=== PATIENT | female | born 1955 | race Caucasian/White ===

== ENCOUNTER 2018-03-06 16:13 | Emergency (ER) | payer MEDICAID ==
[~2018-03-06] VITALS: Ht 166.4 cm; Wt 93.0 kg
[~2018-03-06 16:13] MED LIST: AMLO5TAB4 PO; BENA40TA9 PO; CETI10TA18 PO; FOLI1TAB16 PO; HYDR12.5 PO; THI100T PO
[2018-03-06] MEDS ORDERED: ketorolac tromethamine 15mg/ml inj. IV ONE (16:25)
[2018-03-06 17:34] LABS: BASOPHILS # (AUTO) 0.1 X10'3 (0-0.2); BASOPHILS % (AUTO) 0.7 % (0-1); EOSINOPHILS # (AUTO) 0.2 X10'3 (0-0.9); HEMATOCRIT 40.7 % (35.0-45.0); HEMOGLOBIN 13.7 g/dl (12.0-16.0); LYMPHOCYTES # (AUTO) 2.7 X10'3 (1.1-4.8); LYMPHOCYTES % (AUTO) 30.9 % (21-51); MEAN CORPUSCULAR HEMOGLOBIN 33.6 PG (27.0-31.0); MEAN CORPUSCULAR HGB CONC 33.5 % (33.0-36.5); MEAN CORPUSCULAR VOLUME 100.2 FL (78-98); MEAN PLATELET VOLUME 7.1 FL (7.4-10.4); MONOCYTES # (AUTO) 0.4 X10'3 (0-0.9); MONOCYTES % (AUTO) 4.8 % (2-12); NEUTROPHILS # (AUTO) 5.4 X10'3 (1.8-7.7); NEUTROPHILS % (AUTO) 61.6 % (42-75); PLATELET COUNT 321 X10'3 (140-440); RED BLOOD COUNT 4.07 X10'6 (4.20-5.60); RED CELL DISTRIBUTION WIDTH 13.7 % (11.5-14.5); WHITE BLOOD COUNT 8.8 X10'3 (4.5-11.0)
[2018-03-06 17:56] LABS: ALANINE AMINOTRANSFERASE 45 U/L (12-78); ALBUMIN 3.9 G/DL (3.4-5.0); ALKALINE PHOSPHATASE 66 IU/L (46-116); ANION GAP 20 (8-16); ASPARTATE AMINO TRANSFERASE 54 U/L (10-37); BILIRUBIN,TOTAL 0.3 MG/DL (0.1-1.0); BLOOD UREA NITROGEN 27 MG/DL (7-18); CALCIUM 9.5 MG/DL (8.5-10.1); CHLORIDE 96 MMOL/L (99-107); CREATININE 1.59 MG/DL (0.40-0.90); GLUCOSE 87 MG/DL (70-104); POTASSIUM 3.5 MMOL/L (3.5-5.1); SODIUM 135 MMOL/L (135-145); TOTAL PROTEIN 7.9 G/DL (6.4-8.2); eGFR 33 ML/MIN
[2018-03-06 17:58] LABS: ETHANOL 0.339 GM/DL (0.0-0.010)
[2018-03-06 18:00] LABS: PARTIAL THROMBOPLASTIN TIME 26 SECONDS (22-32); PROTHROMBIN TIME 10.3 SECONDS (9.0-12.0)
[2018-03-06 18:26] VITALS: BP 116/82
== END 2018-03-06 18:28 | disposition home or self-care (01) ==
LOC: ER 16:13
DX: S42.024A Nondisplaced fracture of shaft of right clavicle, initial encounter for closed fracture (principal); S00.83XA Contusion of other part of head, initial encounter; F10.129 Alcohol abuse with intoxication, unspecified; I10 Essential (primary) hypertension; F12.90 Cannabis use, unspecified, uncomplicated; Z90.89 Acquired absence of other organs; Z79.899 Other long term (current) drug therapy; W10.9XXA Fall (on) (from) unspecified stairs and steps, initial encounter; Y93.01 Activity, walking, marching and hiking; Y92.89 Other specified places as the place of occurrence of the external cause; Y99.8 Other external cause status; Y90.0 Blood alcohol level of less than 20 mg/100 ml
CPT/HCPCS: 36415; 70450; 71045; 72125; 73000; 80053; 80320; 85025; 85610; 85730; 93005; 96374; 99284; J1885

== ENCOUNTER 2018-03-14 09:03 | Outpatient (CLI) | payer MEDICAID ==
[~2018-03-14] VITALS: Ht 162.6 cm; Wt 88.4 kg
[2018-03-14 09:04] VITALS: BP 132/82
[2018-03-17] MEDS ORDERED: SERT100T PO (10:29)
== END 2018-03-14 10:10 | disposition home or self-care (01) ==
LOC: ORTHO 09:03
PROVIDERS: ATTEND Nurse Practitioner Family
DX: S42.024A Nondisplaced fracture of shaft of right clavicle, initial encounter for closed fracture (principal); F12.90 Cannabis use, unspecified, uncomplicated; M81.0 Age-related osteoporosis without current pathological fracture; F32.9 Major depressive disorder, single episode, unspecified; I25.2 Old myocardial infarction; I11.0 Hypertensive heart disease with heart failure; I50.9 Heart failure, unspecified; E11.9 Type 2 diabetes mellitus without complications; Z56.0 Unemployment, unspecified; Z72.89 Other problems related to lifestyle; W10.8XXA Fall (on) (from) other stairs and steps, initial encounter; Y93.89 Activity, other specified; Y92.89 Other specified places as the place of occurrence of the external cause; Y99.8 Other external cause status
CPT/HCPCS: 73000; 99215

== ENCOUNTER 2018-03-20 05:30 | Day surgery (SDC) | payer MEDICAID ==
[2018-03-17 11:21] LABS: BASOPHILS # (AUTO) 0.1 X10'3 (0-0.2); BASOPHILS % (AUTO) 0.9 % (0-1); EOSINOPHILS # (AUTO) 0.2 X10'3 (0-0.9); EOSINOPHILS % (AUTO) 2.7 % (0-6); LYMPHOCYTES # (AUTO) 1.5 X10'3 (1.1-4.8); LYMPHOCYTES % (AUTO) 18.3 % (21-51); MEAN CORPUSCULAR HEMOGLOBIN 33.9 PG (27.0-31.0); MEAN CORPUSCULAR HGB CONC 33.9 % (33.0-36.5); MEAN CORPUSCULAR VOLUME 99.9 FL (78-98); MEAN PLATELET VOLUME 7.4 FL (7.4-10.4); MONOCYTES # (AUTO) 0.7 X10'3 (0-0.9); MONOCYTES % (AUTO) 8.2 % (2-12); NEUTROPHILS # (AUTO) 5.7 X10'3 (1.8-7.7); NEUTROPHILS % (AUTO) 69.9 % (42-75); PRE OP HEMATOCRIT 37.6 % (35.0-45.0); PRE OP HEMOGLOBIN 12.8 g/dL (12.0-16.0); PRE OP PLATELET COUNT 263 X10'3 (140-440); RED BLOOD COUNT 3.76 X10'6 (4.20-5.60); RED CELL DISTRIBUTION WIDTH 13.7 % (11.5-14.5)
[2018-03-17 11:41] LABS: ALBUMIN 3.9 G/DL (3.4-5.0); ALBUMIN/GLOBULIN RATIO 1.1 (1.1-1.5); ALKALINE PHOSPHATASE 74 IU/L (46-116); BLOOD UREA NITROGEN 26 MG/DL (7-18); BUN/CREATININE RATIO 16.1 (6.6-38.0); CALCIUM 9.2 MG/DL (8.5-10.1); CHLORIDE 99 MMOL/L (99-107); CREATININE 1.61 MG/DL (0.40-0.90); PRE OP ALT 42 U/L (30-65); PRE OP ANION GAP 12 (8-16); PRE OP AST 28 U/L (10-37); PRE OP BILIRUB, TOTAL 0.7 MG/DL (0.0-1.0); PRE OP GLUCOSE 109 MG/DL (70-104); PRE OP POTASSIUM 3.4 MMOL/L (3.4-5.1); PRE OP SODIUM 136 MMOL/L (135-145); TOTAL CARBON DIOXIDE 25.5 MMOL/L (24-32); TOTAL PROTEIN 7.3 G/DL (6.4-8.2); eGFR 33 ML/MIN
[2018-03-20] VITALS (9 sets, daily range): BP systolic 100–118; BP diastolic 47–74
[~2018-03-20] VITALS: Ht 162.6 cm; Wt 88.4 kg
[~2018-03-20 05:30] MED LIST changes: -FOLI1TAB16 PO; +SERT100T PO; -THI100T PO; +cefazolin/dext.iso 2gm/50ml 50 ML IV ONE; +famotidine 20mg tablet PO ONE; +ringers solution, lacted 1,000 ML IV SCH; +vancomycin inj 1,500 MG in normal saline 300ml IV soln IV ONE
[2018-03-20] MEDS ORDERED: LIDOcaine 1% (10mg/ml) 2ml vial ONE (06:17)
[2018-03-20] MEDS ORDERED: BUPIVAcaine/PF 2.5mg/ml (0.25%) 10ml vial ONE (06:42)
[2018-03-20] MEDS ORDERED: fentaNYL /PF 50mcg/ml 5ml ampule IV ONE (07:37)
[2018-03-20] MEDS ORDERED: midazolam 2 mg/2 ml injection IV ONE (07:37)
[2018-03-20] MEDS ORDERED: LIDOcaine 2% (20mg/ml) 5ml vial IV ONE (07:39)
[2018-03-20] MEDS ORDERED: rocuronium bromide 100mg/10ml (10mg/ml) injection IV ONE (07:40)
[2018-03-20] MEDS ORDERED: propofol 10mg/ml 20ml vial IV ONE (07:40)
[2018-03-20] MEDS ORDERED: sevoflurane 250ml liquid IH ONE (07:44)
[2018-03-20] MEDS ORDERED: ketamine 50mg/5ml syringe IV ONE (08:33)
[2018-03-20] MEDS ORDERED: ondansetron/PF 4mg/2ml inj IV ONE (09:11)
[2018-03-20] MEDS ORDERED: dexamethasone sod phosphate 4mg/ml inj. IV ONE (09:11)
[2018-03-20] MEDS ORDERED: ePHEDrine 50MG/ML INJ. IV ONE (09:11)
[2018-03-20] MEDS ORDERED: phenylephrine 10mg/ml inj. IV ONE (09:11)
[2018-03-20] MEDS ORDERED: glycopyrrolate 0.2mg/ml inj IV ONE (09:11)
[2018-03-20] MEDS ORDERED: neostigmine methylsulfate 1 MG/ML 10ml vial IV ONE (09:11)
[2018-03-20] MEDS ORDERED: meperidine/PF 25mg/ml syringe ONE (09:41)
[2018-03-20] MEDS ORDERED: ringers solution, lacted 1,000 ML IV SCH ×2 (09:46→10:16)
[2018-03-20] MEDS ORDERED: ondansetron/PF 4mg/2ml inj IV PRN ×2 (09:50→10:20)
[2018-03-20] MEDS ORDERED: proCHLORperazine 10 MG/2 ml inj IV PRN (09:50)
[2018-03-20] MEDS ORDERED: acetaminophen 1,000mg/100ml IV 100 ML IV ONE (09:50)
[2018-03-20] MEDS ORDERED: morphine 4 MG/ML inj SYRINge IV PRN ×2 (09:50)
[2018-03-20] MEDS ORDERED: meperidine/PF 25mg/ml syringe IV PRN ×2 (09:50)
[2018-03-20] MEDS: meperidine/PF 25mg/ml syringe IV PRN ×2 (10:02→10:15)
[2018-03-20] MEDS ORDERED: HYDROmorphone inj. 0.5 MG/0.5 ML DISP.SYRIN IV PRN ×2 (10:20)
== END 2018-03-20 11:10 | disposition home or self-care (01) ==
LOC: PAS 05:30
PROVIDERS: ATTEND Orthopaedic Surgery
DX: S42.021A Displaced fracture of shaft of right clavicle, initial encounter for closed fracture (principal); F32.9 Major depressive disorder, single episode, unspecified; F41.8 Other specified anxiety disorders; E78.5 Hyperlipidemia, unspecified; I10 Essential (primary) hypertension; E11.9 Type 2 diabetes mellitus without complications; N19 Unspecified kidney failure; F10.10 Alcohol abuse, uncomplicated; F12.90 Cannabis use, unspecified, uncomplicated; F19.11 Other psychoactive substance abuse, in remission; Z86.19 Personal history of other infectious and parasitic diseases; Z90.12 Acquired absence of left breast and nipple; Z90.49 Acquired absence of other specified parts of digestive tract; Z87.891 Personal history of nicotine dependence; Z87.01 Personal history of pneumonia (recurrent); Z87.09 Personal history of other diseases of the respiratory system; Z87.2 Personal history of diseases of the skin and subcutaneous tissue; Z79.899 Other long term (current) drug therapy; Z98.890 Other specified postprocedural states; W10.8XXA Fall (on) (from) other stairs and steps, initial encounter; Y93.89 Activity, other specified; Y92.89 Other specified places as the place of occurrence of the external cause; Y99.8 Other external cause status; Z82.49 Family history of ischemic heart disease and other diseases of the circulatory system; Z83.3 Family history of diabetes mellitus
CPT/HCPCS: 23515; 36415; 80053; 85025; A6449; C1713; J0131; J0690; J1100; J1170; J2001; J2175; J2250; J2370; J2405; J2704; J2710; J3010; J3370; J3490; A4565; A7000; J7120

== ENCOUNTER 2018-03-30 11:37 | Outpatient (CLI) | payer MEDICAID ==
[2018-03-30 11:32] VITALS: BP 136/69
[~2018-03-30 11:37] MED LIST changes: -cefazolin/dext.iso 2gm/50ml 50 ML IV ONE; -famotidine 20mg tablet PO ONE; -ringers solution, lacted 1,000 ML IV SCH; -vancomycin inj 1,500 MG in normal saline 300ml IV soln IV ONE
== END 2018-03-30 12:48 | disposition home or self-care (01) ==
LOC: ORTHO 11:37
PROVIDERS: ATTEND Nurse Practitioner Family
DX: S42.024D Nondisplaced fracture of shaft of right clavicle, subsequent encounter for fracture with routine healing (principal); F12.90 Cannabis use, unspecified, uncomplicated; F10.10 Alcohol abuse, uncomplicated; I10 Essential (primary) hypertension; E11.9 Type 2 diabetes mellitus without complications; M81.0 Age-related osteoporosis without current pathological fracture; F32.9 Major depressive disorder, single episode, unspecified; Z87.891 Personal history of nicotine dependence; Z56.0 Unemployment, unspecified; W10.8XXD Fall (on) (from) other stairs and steps, subsequent encounter
CPT/HCPCS: 73000; 99214

== ENCOUNTER 2018-04-12 10:18 | Outpatient (CLI) | payer MEDICAID ==
[2018-04-12 10:17] VITALS: BP 146/90
== END 2018-04-12 10:58 | disposition home or self-care (01) ==
LOC: ORTHO 10:18
PROVIDERS: ATTEND Nurse Practitioner Family
DX: S42.024D Nondisplaced fracture of shaft of right clavicle, subsequent encounter for fracture with routine healing (principal); I10 Essential (primary) hypertension; E11.9 Type 2 diabetes mellitus without complications; M81.0 Age-related osteoporosis without current pathological fracture; F32.9 Major depressive disorder, single episode, unspecified; Z79.899 Other long term (current) drug therapy; Z87.891 Personal history of nicotine dependence; W10.8XXD Fall (on) (from) other stairs and steps, subsequent encounter
CPT/HCPCS: 73000; 99213

== ENCOUNTER 2018-05-03 13:01 | Outpatient (CLI) | payer MEDICAID ==
[2018-05-03 13:04] VITALS: BP 118/91
== END 2018-05-03 13:36 | disposition home or self-care (01) ==
LOC: ORTHO 13:01
PROVIDERS: ATTEND Nurse Practitioner Family
DX: S42.024D Nondisplaced fracture of shaft of right clavicle, subsequent encounter for fracture with routine healing (principal); I10 Essential (primary) hypertension; E11.9 Type 2 diabetes mellitus without complications; M81.0 Age-related osteoporosis without current pathological fracture; F32.9 Major depressive disorder, single episode, unspecified; Z79.899 Other long term (current) drug therapy; Z87.891 Personal history of nicotine dependence; W10.8XXD Fall (on) (from) other stairs and steps, subsequent encounter
CPT/HCPCS: 73000; G0463; 99213

== ENCOUNTER 2018-05-24 14:28 | Outpatient (CLI) | payer MEDICAID ==
[2018-05-24 14:30] VITALS: BP 148/103
[2018-05-24 15:17] VITALS: BP 129/87
== END 2018-05-24 15:29 | disposition home or self-care (01) ==
LOC: ORTHO 14:28
PROVIDERS: ATTEND Nurse Practitioner Family
DX: S42.021G Displaced fracture of shaft of right clavicle, subsequent encounter for fracture with delayed healing (principal); F10.10 Alcohol abuse, uncomplicated; E11.9 Type 2 diabetes mellitus without complications; M81.0 Age-related osteoporosis without current pathological fracture; F32.9 Major depressive disorder, single episode, unspecified; I10 Essential (primary) hypertension; Z56.0 Unemployment, unspecified; Z87.891 Personal history of nicotine dependence; W10.8XXD Fall (on) (from) other stairs and steps, subsequent encounter
CPT/HCPCS: 73000; 99213

== ENCOUNTER 2018-07-05 16:28 | Outpatient (CLI) | payer MEDICAID ==
[2018-07-05 16:29] VITALS: BP 142/88
== END 2018-07-05 16:29 | disposition home or self-care (01) ==
LOC: ORTHO 16:28
PROVIDERS: ATTEND Orthopaedic Surgery
DX: S42.031D Displaced fracture of lateral end of right clavicle, subsequent encounter for fracture with routine healing (principal); I10 Essential (primary) hypertension; Z87.891 Personal history of nicotine dependence; X58.XXXD Exposure to other specified factors, subsequent encounter
CPT/HCPCS: 73000; 99213

== ENCOUNTER 2018-08-10 12:04 | Outpatient (CLI) | payer MEDICAID ==
[2018-08-10 11:44] VITALS: BP 162/95
== END 2018-08-10 13:01 | disposition home or self-care (01) ==
LOC: ORTHO 12:04
PROVIDERS: ATTEND Orthopaedic Surgery
DX: S42.001D Fracture of unspecified part of right clavicle, subsequent encounter for fracture with routine healing (principal); Z97.8 Presence of other specified devices; X58.XXXD Exposure to other specified factors, subsequent encounter
CPT/HCPCS: 73000; 99212

== ENCOUNTER 2020-09-18 18:28 | Emergency (ER) | payer MEDICAID ==
[~2020-09-18] VITALS: Ht 167.6 cm; Wt 77.3 kg
[2020-09-18 18:33] VITALS: BP 123/70
[2020-09-18] MEDS ORDERED: ketorolac tromethamine 15mg/ml inj. IV ONE (19:10)
== END 2020-09-18 20:06 | disposition home or self-care (01) ==
LOC: ER 18:28
DX: S43.004A Unspecified dislocation of right shoulder joint, initial encounter (principal); M25.511 Pain in right shoulder; E78.00 Pure hypercholesterolemia, unspecified; I10 Essential (primary) hypertension; E11.9 Type 2 diabetes mellitus without complications; F41.9 Anxiety disorder, unspecified; F32.9 Major depressive disorder, single episode, unspecified; F12.90 Cannabis use, unspecified, uncomplicated; Z86.19 Personal history of other infectious and parasitic diseases; Z90.49 Acquired absence of other specified parts of digestive tract; Z72.89 Other problems related to lifestyle; Z56.0 Unemployment, unspecified; Z79.899 Other long term (current) drug therapy; W01.0XXA Fall on same level from slipping, tripping and stumbling without subsequent striking against object, initial encounter; Y93.89 Activity, other specified; Y92.89 Other specified places as the place of occurrence of the external cause; Y99.8 Other external cause status
CPT/HCPCS: 23650; 73030; 96374; 99284; J1885

== ENCOUNTER 2021-05-19 09:46 | Day surgery (SDC) | payer MEDICAID ==
[2021-05-18 15:05] LABS: BASOPHILS # (AUTO) 0.1 X10'3 (0-0.2); BASOPHILS % (AUTO) 0.8 % (0-1); EOSINOPHILS % (AUTO) 0.3 % (0-6); LYMPHOCYTES # (AUTO) 1.7 X10'3 (1.1-4.8); LYMPHOCYTES % (AUTO) 15.2 % (21-51); MEAN CORPUSCULAR HEMOGLOBIN 31.5 PG (27.0-31.0); MEAN CORPUSCULAR HGB CONC 32.6 g/dL (33.0-36.5); MEAN CORPUSCULAR VOLUME 96.5 FL (78-98); MEAN PLATELET VOLUME 7.2 FL (7.4-10.4); MONOCYTES # (AUTO) 1.2 X10'3 (0-0.9); MONOCYTES % (AUTO) 10.1 % (2-12); NEUTROPHILS # (AUTO) 8.5 X10'3 (1.8-7.7); NEUTROPHILS % (AUTO) 73.6 % (42-75); PRE OP HEMATOCRIT 38.4 % (35.0-45.0); PRE OP HEMOGLOBIN 12.5 g/dL (12.0-16.0); PRE OP PLATELET COUNT 347 X10'3 (140-440); RED BLOOD COUNT 3.98 X10'6 (4.20-5.60); RED CELL DISTRIBUTION WIDTH 14.6 % (11.5-14.5)
[2021-05-18 15:34] LABS: ALBUMIN 4.3 G/DL (3.4-5.0); ALBUMIN/GLOBULIN RATIO 1.2 (1.1-1.5); BLOOD UREA NITROGEN 34 MG/DL (7-18); BUN/CREATININE RATIO 23.9 (6.6-38.0); CALCIUM 9.9 MG/DL (8.5-10.1); CHLORIDE 100 MMOL/L (99-107); CREATININE 1.42 MG/DL (0.40-0.90); PRE OP ANION GAP 10 (8-16); PRE OP AST 86 U/L (10-37); PRE OP BILIRUB, TOTAL 0.6 MG/DL (0.0-1.0); PRE OP GLUCOSE 114 MG/DL (70-104); PRE OP POTASSIUM 4.2 MMOL/L (3.4-5.1); PRE OP SODIUM 137 MMOL/L (135-145); TOTAL CARBON DIOXIDE 26.8 MMOL/L (24-32); TOTAL PROTEIN 7.9 G/DL (6.4-8.2); eGFR 37 ML/MIN
[2021-05-18 15:36] LABS: PRE OP ALT 117 U/L (30-65)
[2021-05-19] VITALS (7 sets, daily range): BP systolic 110–131; BP diastolic 66–77
[~2021-05-19] VITALS: Ht 167.6 cm; Wt 75.3 kg
[~2021-05-19 09:46] MED LIST changes: +ALLO100T PO; +BENA40TA46 PO; -BENA40TA9 PO; -CETI10TA18 PO; +CETI10TA19 PO; -SERT100T PO; +famotidine 20mg tablet PO ONE; +ringers solution, lacted 1,000 ML IV SCH
[2021-05-19] MEDS ORDERED: ceFAZolin 2gm in dextrose, iso 50 ML IV ONE ×2 (10:10→10:35)
[2021-05-19] MEDS ORDERED: gabapentin 300mg capsule PO ONE (10:30)
[2021-05-19] MEDS ORDERED: VANCOMYCIN 1,500MG in NS 300 ML IVPB IV ONE (10:35)
[2021-05-19] MEDS ORDERED: tranexamic acid inj. 1,000 MG in 0.7% saline 100 ML PMX IV ONE (10:36)
[2021-05-19] MEDS ORDERED: oxyCODONE SR 10mg (sust. release) tab -2 tabs (20mg) PO ONE (10:37)
[2021-05-19] MEDS ORDERED: celeCOXIB 100mg capsule PO ONE (10:37)
[2021-05-19] MEDS ORDERED: acetaminophen 325mg tablet PO ONE (10:37)
[2021-05-19] MEDS ORDERED: metoclopramide 5 mg/ml inj IV ONE (10:39)
[2021-05-19] MEDS ORDERED: BUPIVAcaine 0.5% inj/PF 30 ML ONE (11:42)
[2021-05-19] MEDS ORDERED: fentaNYL/PF 50MCG/1 ML 2ML syringe ONE ×2 (12:05→13:12)
[2021-05-19] MEDS ORDERED: midazolam 1 mg/ML 2ml injection ONE (12:05)
[2021-05-19] MEDS ORDERED: LIDOcaine 2% (20mg/ml) 5ml vial ONE (12:06)
[2021-05-19] MEDS ORDERED: propofol inj 20 ML IV ONE (12:06)
[2021-05-19] MEDS ORDERED: ondansetron/PF 4mg/2ml inj ONE (12:06)
[2021-05-19] MEDS ORDERED: dexamethasone sod phosphate 4mg/ml inj. ONE (12:06)
[2021-05-19] MEDS ORDERED: morphine 4 MG/ML inj SYRINge IV PRN (12:50)
[2021-05-19] MEDS ORDERED: meperidine/PF 25mg/ml syringe IV PRN ×3 (12:50)
[2021-05-19] MEDS ORDERED: ondansetron/PF 4mg/2ml inj IV PRN (12:50)
[2021-05-19] MEDS ORDERED: proCHLORperazine 10 MG/2 ml inj IV PRN (12:50)
[2021-05-19] MEDS ORDERED: ringers solution, lacted 1,000 ML IV SCH (12:50)
[2021-05-19] MEDS ORDERED: morphine 2 MG/ML inj. syringe IV PRN (12:50)
[2021-05-19] MEDS ORDERED: sevoflurane 250ml liquid IH ONE (12:51)
[2021-05-19] MEDS ORDERED: ePHEDrine 50MG/ML INJ. ONE (13:05)
[2021-05-19] MEDS ORDERED: BUPIVAcaine 0.5% inj/PF 30 ml vial IJ ONE (13:34)
--- NOTE | 2021-05-19 13:40 | NUR ---
Received from OR via , accompanied by Anesthesiologist DR CANTU and report given by Anesthesiolgist. AWAKENS TO VOICE. VITALS STABLE. DRESSING DI. SAADIA PAIN.
--- NOTE | 2021-05-19 14:50 | NUR ---
AWAKE AND ORIENTED. VITALS STABLE. DRESSING DI. SAADIA PAIN. HOME WITH [facility] [employer] AT THIS TIME.
== END 2021-05-19 14:50 | disposition home or self-care (01) ==
LOC: PRE-OP 09:46
PROVIDERS: ATTEND Orthopaedic Surgery
DX: T84.84XA Pain due to internal orthopedic prosthetic devices, implants and grafts, initial encounter (principal); M10.9 Gout, unspecified; I10 Essential (primary) hypertension; Z87.891 Personal history of nicotine dependence; Z72.89 Other problems related to lifestyle; Z88.5 Allergy status to narcotic agent; Z79.899 Other long term (current) drug therapy; Z98.890 Other specified postprocedural states; Z20.822 Contact with and (suspected) exposure to COVID-19; Y83.8 Other surgical procedures as the cause of abnormal reaction of the patient, or of later complication, without mention of misadventure at the time of the procedure; Y92.89 Other specified places as the place of occurrence of the external cause
CPT/HCPCS: 20680; 36415; 73020; 76000; 80053; 82948; 85025; 87635; C9803; J0690; J1100; J2250; J2405; J2704; J2765; J3010; J3370; J3490; J7030; J7040; J7120; S0020; Z7506; Z7512; A4618; A7000

== ENCOUNTER 2022-06-07 06:18 | Day surgery (SDC) | payer MEDICARE, MEDICAID ==
[2022-06-01 10:46] LABS: BASOPHILS # (AUTO) 0.1 X10'3 (0-0.2); BASOPHILS % (AUTO) 0.7 % (0-1); EOSINOPHILS # (AUTO) 0.1 X10'3 (0-0.9); EOSINOPHILS % (AUTO) 1.5 % (0-6); LYMPHOCYTES # (AUTO) 1.6 X10'3 (1.1-4.8); LYMPHOCYTES % (AUTO) 16.1 % (21-51); MEAN CORPUSCULAR HGB CONC 33.1 g/dL (33.0-36.5); MEAN CORPUSCULAR VOLUME 102.8 FL (78-98); MEAN PLATELET VOLUME 8.1 FL (7.4-10.4); MONOCYTES # (AUTO) 0.5 X10'3 (0-0.9); MONOCYTES % (AUTO) 5.4 % (2-12); NEUTROPHILS # (AUTO) 7.7 X10'3 (1.8-7.7); NEUTROPHILS % (AUTO) 76.3 % (42-75); PRE OP HEMOGLOBIN 12.2 g/dL (12.0-16.0); PRE OP PLATELET COUNT 111 X10'3 (140-440); RED BLOOD COUNT 3.59 X10'6 (4.20-5.60)
[2022-06-01 11:10] LABS: ALBUMIN 4.3 G/DL (3.4-5.0); ALBUMIN/GLOBULIN RATIO 1.3 (1.1-1.5); ALKALINE PHOSPHATASE 62 IU/L (46-116); CALCIUM 9.5 MG/DL (8.5-10.1); CHLORIDE 101 MMOL/L (99-107); CREATININE 1.09 MG/DL (0.40-0.90); PRE OP ALT 62 U/L (30-65); PRE OP ANION GAP 13 (8-16); PRE OP AST 83 U/L (10-37); PRE OP BILIRUB, TOTAL 0.8 MG/DL (0.0-1.0); PRE OP GLUCOSE 106 MG/DL (70-104); PRE OP POTASSIUM 3.4 MMOL/L (3.4-5.1); PRE OP SODIUM 138 MMOL/L (135-145); TOTAL CARBON DIOXIDE 24.2 MMOL/L (24-32); TOTAL PROTEIN 7.7 G/DL (6.4-8.2); eGFR 50 ML/MIN
[2022-06-01 11:17] LABS: BLOOD UREA NITROGEN 22 MG/DL (7-18); BUN/CREATININE RATIO 20.2 (6.6-38.0)
[~2022-06-07] VITALS: Ht 167.6 cm; Wt 79.5 kg
[2022-06-07] VITALS (12 sets, daily range): BP systolic 92–143; BP diastolic 54–70
[~2022-06-07 06:18] MED LIST changes: +DOCUMENT DATE & TIME OF BETA-BLOCKER PO ONE; -HYDR12.5 PO; +METO-384 PO; +ceFAZolin inj. 2,000 MG in dextrose 5%-water 100 ML IV ONE
[2022-06-07] MEDS ORDERED: BUPIVAcaine 0.5% inj/PF 30 ML ONE (06:42)
[2022-06-07] MEDS ORDERED: ringers solution, lacted 1,000 ML IV SCH (08:15)
[2022-06-07] MEDS ORDERED: proCHLORperazine 10 MG/2 ml inj IV PRN (08:15)
[2022-06-07] MEDS ORDERED: morphine 4 MG/ML inj SYRINge IV PRN (08:15)
[2022-06-07] MEDS ORDERED: morphine 2 MG/ML inj. syringe IV PRN (08:15)
[2022-06-07] MEDS ORDERED: meperidine/PF 25mg/ml syringe IV PRN ×3 (08:15)
[2022-06-07] MEDS ORDERED: ondansetron/PF 4mg/2ml inj IV PRN (08:15)
[2022-06-07] MEDS ORDERED: LIDOcaine 0.5% (5mg/ml) 50ml vial ONE (08:27)
[2022-06-07] MEDS ORDERED: fentaNYL/PF 50MCG/1 ML 2ML syringe ONE (08:28)
[2022-06-07] MEDS ORDERED: midazolam 1 mg/ML 2ml injection ONE ×2 (08:28→08:35)
[2022-06-07] MEDS ORDERED: BUPIVAcaine 0.5% inj/PF 30 ml vial IJ ONE (09:06)
[2022-06-07] MEDS ORDERED: propofol inj 20 ML IV ONE ×3 (09:07)
--- NOTE | 2022-06-07 09:23 | NUR ---
Received from OR via [facility] TO ROOM 5 , accompanied by Anesthesiologist DR KNIGHT and report given by Anesthesiolgist. PT PREENTS WITH 20G LEFT HAND, RIGHT HAND DRESSING CDI, VSS. Addendum: 06/07/22 at 0935 by Chayito Grider RN, RN Amended: Links added.
[2022-06-07] MEDS ORDERED: HYDROcodone/acetaminophen 5mg/325mg tablet PO ONE (10:10)
--- NOTE | 2022-06-07 10:53 | NUR ---
I HAVE REVIEWED D/C INSTRUCTIONS WITH PATIENT and they have verbalized understanding patient d/c home with all belongings and family gave transport home. Addendum: 06/07/22 at 1101 by Chayito Grider RN, RN Amended: Links added.
== END 2022-06-07 10:53 | disposition home or self-care (01) ==
LOC: PAS 06:18
PROVIDERS: ATTEND Orthopaedic Surgery Hand Surgery
DX: S63.286A Dislocation of proximal interphalangeal joint of right little finger, initial encounter (principal); I10 Essential (primary) hypertension; M10.9 Gout, unspecified; M19.90 Unspecified osteoarthritis, unspecified site; E66.9 Obesity, unspecified; Z68.28 Body mass index [BMI] 28.0-28.9, adult; Z88.5 Allergy status to narcotic agent; Z79.899 Other long term (current) drug therapy; Z87.891 Personal history of nicotine dependence; Z72.89 Other problems related to lifestyle; Z90.49 Acquired absence of other specified parts of digestive tract; Z98.890 Other specified postprocedural states; F12.90 Cannabis use, unspecified, uncomplicated; X58.XXXA Exposure to other specified factors, initial encounter; Y93.89 Activity, other specified; Y92.89 Other specified places as the place of occurrence of the external cause; Y99.8 Other external cause status
CPT/HCPCS: 26860; 36415; 80053; 82948; 85025; C1713; J0690; J2250; J2405; J2704; J3010; J3490; J7030; J7060; J7120; S0020; Z7506; Z7512; A4215; A4618; A7000